=== PATIENT | male | born 1950 | race Caucasian/White ===

== ENCOUNTER 2024-06-30 19:39 | Emergency (ER) | payer OTHER ==
[2024-06-30] MEDS ORDERED: ASPIRIN 81 MG CHEWABLE TABLET ONE (20:52)
--- NOTE | 2024-06-30 21:13 | RAD REPORT ---
EXAMINATION: ONE VIEW CHEST XR CLINICAL INDICATION: Male, 73 years old.COUGH TECHNIQUE: 1 View, AP supine, X-ray of the chest was performed. [id number]. COMPARISON: No prior exam. FINDINGS: Lungs and pleura: Clear lungs. No effusion. Heart and mediastinum: Normal heart size. Unremarkable mediastinal contours. Osseous structures: No acute abnormality. Tubes/lines: None Other: None. IMPRESSION: No acute intrathoracic abnormality.
[2024-06-30] MEDS ORDERED: IPRATROPIUM BROM 0.5MG/2.5ML ONE (21:15)
[2024-06-30] MEDS ORDERED: ALBUTEROL 2.5 MG/3 ML NEB SOL ONE (21:15)
[2024-06-30 21:18] LABS: Absolute Basophils 0.1 K/uL (0-0.5); Absolute Eosinophils 0.3 K/uL (0-0.5); Absolute Lymphocytes (CBC) 1.6 K/uL (0.7-4.9); Absolute Monocytes 0.9 K/uL (0.1-1.3); Absolute Neutrophil 8.7 K/uL (1.8-8.0); Basophils % 0.6 % (0-1.3); Eosinophils % 2.4 % (0-4.4); Hematocrit 46.3 % (39.6-49.0); Lymphocytes % 13.9 % (15.3-44.8); MCHC 34.5 g/dL (32.0-36.0); MCV 95.6 fL (80-100); MPV 7.8 fL (7.6-11.3); Monocytes % 7.5 % (3.3-12.3); Neutrophils % 75.6 % (41.7-73.7); Nucleated Red Blood Cells % 0.1 % (0-0); Platelets 228 thou/uL (152-406); RBC Red Blood Cell Count 4.84 M/uL (4.33-5.43); Red Cell Distribution Width 13.8 % (12.1-15.2)
[2024-06-30 21:23] LABS: Specific Gravity 1.013 (1.005-1.030); Sqamous Epithelial <5 /HPF (None Seen); Urine Bacteria None Seen /HPF (<20); Urine Bilirubin NEGATIVE (Negative); Urine Blood Negative (Negative); Urine Clarity Clear (Clear); Urine Color Light-Yellow (Yellow); Urine Culture Reflex Order NOT NEEDED; Urine Glucose NEGATIVE (Negative); Urine Ketones NEGATIVE (Negative); Urine Microscopic Reflex YN ORDER UMIC; Urine Mucus Slight /HPF (None Seen); Urine Nitrite NEGATIVE (Negative); Urine Protein NEGATIVE (Negative); Urine RBC <5 /HPF (None Seen); Urine Urobilinogen Normal (Normal); Urine WBC <5 /HPF (<5); Urine pH 5.5 (5.0-7.0)
[2024-06-30 21:30] LABS: Barbiturates NEGATIVE (NEGATIVE); Benzodiazepines NEGATIVE (NEGATIVE); Cocaine NEGATIVE (NEGATIVE); METHAMPHETAM NEGATIVE (NEGATIVE); Methadone NEGATIVE (NEGATIVE); Opiates POSITIVE (NEGATIVE); Phencyclidine NEGATIVE (NEGATIVE); THC Cannibis POSITIVE (NEGATIVE)
[2024-06-30 21:36] LABS: Anion Gap 8.8 mEq/L (5.0-15.0); Troponin High Sensitivity 10.3 pg/mL (<58.9)
[2024-06-30 21:37] LABS: Potassium 3.8 mEq/L (3.5-5.1)
--- NOTE | 2024-07-01 00:25 | ER ---
Nurse's Notes [facility] Name: Chi Lovett Age: 73 yrs Sex: Male : 1950 Arrival Date: 06/30/2024 Time: 19:39 Bed 19 Private MD: Diagnosis: Shortness of breath;Wheezing;Palpitations;Generalized anxiety disorder Presentation: 06/30 20:35 Chief complaint: Patient states: difficulty breathing dizziness and feels like his kj2 heart is racing. Coronavirus screen: At this time, the client does not indicate any symptoms associated with coronavirus-19. Ebola Screen: No symptoms or risks identified at this time. 20:35 Method Of Arrival: Ambulatory kj2 21:56 Initial Sepsis Screen: Does the patient meet any 2 criteria? No. Patient's initial kj2 sepsis screen is negative. Does the patient have a suspected source of infection? No. Patient's initial sepsis screen is negative. Risk Assessment: Do you want to hurt yourself or someone else? Patient reports no desire to harm self or others. Onset of symptoms was June 30, 2024. 21:56 Acuity: SHARLENE 3 kj2 Triage Assessment: 21:24 General: Appears in no apparent distress. Behavior is calm, cooperative. Pain: Denies kj2 pain. Neuro: Level of Consciousness is awake, alert, obeys commands. Cardiovascular: Patient's skin is warm and dry. Respiratory: Reports shortness of breath at rest. GI: No signs and/or symptoms were reported involving the gastrointestinal system. : No signs and/or symptoms were reported regarding the genitourinary system. 21:56 Respiratory: Onset: The symptoms/episode began/occurred yesterday, the patient has kj2 moderate shortness of breath. Historical: - Allergies: 21:23 PENICILLINS; kj2 - Immunization history:: Adult Immunizations unknown. - Infectious Disease History:: Denies. - Social history:: Smoking status: Patient reports the use of cigarette tobacco products, smokes one-half pack cigarettes per day. Screenin:40 [facility] ED Fall Risk Assessment (Adult) History of falling in the last 3 months, kj2 including since admission No falls in past 3 months (0 pts) Confusion or Disorientation No (0 pts) Intoxicated or Sedated No (0 pts) Impaired Gait No (0 pts) Mobility Assist Device Used No (0 pt) Altered Elimination No (0 pt) Score/Fall Risk Level 0 - 2 = Low Risk Maintained a safe environment, Hourly rounding (assess needs \T\ fall precautionary measures) done. Abuse screen: Denies threats or abuse. Denies injuries from another. Nutritional screening: No deficits noted. Tuberculosis screening: No symptoms or risk factors identified. Assessment: 20:40 Respiratory: Airway is patent Respiratory effort is unlabored. kj2 21:26 General: see triage assessment. kj2 21:30 Respiratory: Breath sounds with rhonchi bilaterally. kj2 22:30 Reassessment: Patient appears in no apparent distress at this time. Patient and/or kj2 family updated on plan of care and expected duration. Pain level reassessed. Patient is alert, oriented x 3, equal unlabored respirations, skin warm/dry/pink. 22:50 Reassessment: Patient appears in no apparent distress at this time. Patient and/or kj2 family updated on plan of care and expected duration. Pain level reassessed. Patient is alert, oriented x 3, equal unlabored respirations, skin warm/dry/pink. 23:27 Reassessment: Patient appears in no apparent distress at this time. Patient and/or kj2 family updated on plan of care and expected duration. Pain level reassessed. Patient is alert, oriented x 3, equal unlabored respirations, skin warm/dry/pink. 23:52 Reassessment: Patient appears in no apparent distress at this time. Patient and/or kj2 family updated on plan of care and expected duration. Pain level reassessed. Patient is alert, oriented x 3, equal unlabored respirations, skin warm/dry/pink. 07/01 00:30 Cardiovascular: Rhythm is sinus rhythm. kj2 00:31 Reassessment: Patient appears in no apparent distress at this time. Patient and/or kj2 family updated on plan of care and expected duration. Pain level reassessed. Patient is alert, oriented x 3, equal unlabored respirations, skin warm/dry/pink. Vital Signs: 06/30 20:35 BP 179 / 74; Pulse 64; Resp 20; Temp 98; Pulse Ox 95% on R/A; Weight 86.18 kg; Height 6 kj2 ft. 1 in. ; 23:51 BP 188 / 77 LA; kj2 23:51 BP 158 / 79 RA; kj2 11/10 00:31 BP 145 / 80; Pulse 80; Resp 18; Temp 98; Pulse Ox 97% on R/A; kj2 06/30 20:35 Body Mass Index 25.07 (86.18 kg, 185.42 cm) kj2 ED Course: 06/30 19:45 Patient arrived in ED. gm2 20:32 Tejas Wilson PA is PHCP. cp 20:32 Martin Cotto MD is Attending Physician. cp 20:35 Arm band placed on Patient placed in an exam room, on a stretcher. kj2 20:40 Patient has correct armband on for positive identification. Bed in low position. Call kj2 light in reach. Provided Education on: call light. 20:48 Catherine Dahl, CODI is Primary Nurse. kj2 21:00 Inserted saline lock: 20 gauge in right antecubital area, using aseptic technique. kj2 Blood collected. Flushed with 10 mL NS. 21:06 Basic Metabolic Panel Sent. oh1 21:06 CBC with Diff Sent. oh1 21:08 XRAY Chest (1 view) In Process Unspecified. EDMS 21:55 EKG done, by field service poultry technician. reviewed by Tejas GONZALEZ. oh1 21:56 Triage completed. kj2 21:57 No provider procedures requiring assistance completed. kj2 07/01 00:30 IV discontinued, intact, bleeding controlled, No redness/swelling at site. Pressure kj2 dressing applied. Administered Medications: 06/30 21:00 Drug: DuoNeb Nebulize (2.5 mg - 0.5 mg) 3 ml Nebulizer once Route: Nebulizer; kj2 21:53 Follow up: Response: No adverse reaction kj2 21:00 Drug: Aspirin PO Chewable Tablet 324 mg PO once; 81 mg tablets x 4 Route: PO; kj2 21:53 Follow up: Response: No adverse reaction kj2 Medication: 21:56 VIS not applicable for this client. kj2 Outcome: 07/01 00:24 Discharge ordered by . cp 00:30 Discharged to home ambulatory, kj2 00:30 Condition: stable 00:30 Discharge instructions given to patient, Instructed on discharge instructions, follow up and referral plans. Demonstrated understanding of 00:37 Patient left the ED. kj2 Signatures: Dispatcher [employer] EDMS Tejas Wilson PA PA cp Mitchell, Ginger gm2 Catherine Dahl, RN RN kj2 Rhoda [place] oh1
--- NOTE | 2024-07-01 00:25 | EDPHYS ---
Physician Documentation [facility] Name: Chi Lovett Age: 73 yrs Sex: Male : 1950 Arrival Date: 06/30/2024 Time: 19:39 Bed 19 Private MD: ED Physician Martin Cotto HPI: 06/30 21:00 This 73 yrs old Male presents to ER via Ambulatory with complaints of Shortness Of cp Breath, Pt states he is not feeling right, Dizziness, Headache. 21:00 The patient has shortness of breath at rest. cp 21:00 Onset: The symptoms/episode began/occurred tonight while at home. Duration: The cp symptoms are continuous, but are steadily getting better. Associated signs and symptoms: Pertinent positives: dizziness, headache, palpitations and anxiety, Pertinent negatives: chest pain, diaphoresis, fever, vomiting, diarrhea. Severity of symptoms: in the emergency department the symptoms have improved mildly. Historical: - Allergies: 21: PENICILLINS; kj2 - Immunization history:: Adult Immunizations unknown. - Infectious Disease History:: Denies. - Social history:: Smoking status: Patient reports the use of cigarette tobacco products, smokes one-half pack cigarettes per day. ROS: 21:05 Constitutional: Negative for body aches, chills, fever, poor PO intake, cp 21:05 Respiratory: Positive for shortness of breath, wheezing, cp 21:05 Psych: Positive for anxiety, 21:05 Eyes: Negative for injury, pain, redness, and discharge, cp 21:05 ENT: Negative for drainage from ear(s), ear pain, sore throat, difficulty swallowing, difficulty handling secretions, 21:05 Cardiovascular: Positive for palpitations, Negative for chest pain, edema, 21:05 Abdomen/GI: Negative for abdominal pain, vomiting, diarrhea, constipation, 21:05 Back: Negative for pain at rest, pain with movement, 21:05 : Negative for urinary symptoms, testicular pain 21:05 Skin: Negative for rash, 21:05 Neuro: Positive for dizziness, headache, Negative for altered mental status, numbness, syncope, weakness, 21:05 All other systems are negative, Exam: 21:10 Constitutional: The patient appears in no acute distress, alert, awake, cp non-diaphoretic, non-toxic, well developed, well nourished, 21:10 Head/Face: Normocephalic, atraumatic. cp 21:10 Eyes: Periorbital structures: appear normal, Conjunctiva: normal, no exudate, no injection, Sclera: no appreciated abnormality, Lids and lashes: appear normal, bilaterally, 21:10 ENT: External ear(s): are unremarkable, Nose: is normal, Mouth: Lips: moist, Oral mucosa: pink and intact, moist, Posterior pharynx: is normal, airway is patent, no erythema, no exudate, 21:10 Neck: ROM/movement: is normal, is supple, without pain, no range of motions limitations, 21:10 Chest/axilla: Inspection: normal, Palpation: crepitus, is not appreciated, tenderness, is not appreciated, 21:10 Cardiovascular: Rate: normal, Rhythm: regular, Edema: is not appreciated, JVD: is not appreciated, 21:10 Respiratory: the patient does not display signs of respiratory distress, Respirations: normal, no use of accessory muscles, no retractions, labored breathing, is not present, Breath sounds: decreased breath sounds, that are mild, throughout, stridor, is not appreciated, wheezing: that is mild, is heard diffusely, 21:10 Abdomen/GI: Inspection: abdomen appears normal, Palpation: abdomen is soft and non-tender, in all quadrants, 21:10 Back: pain, is absent, ROM is normal, 21:10 Neuro: Orientation: to person, place \T\ time. Mentation: is normal, Cerebellar function: is grossly normal, Motor: moves all fours, strength is normal, Sensation: is normal, 21:10 Psych: Behavior/mood is pleasant, cooperative, Affect is calm, Patient has no thoughts/intents to harm self or others. Judgement / Insight is normal. Delusions/hallucinations are not present. 21:40 ECG was reviewed by the Attending Physician. cp Vital Signs: 20:35 BP 179 / 74; Pulse 64; Resp 20; Temp 98; Pulse Ox 95% on R/A; Weight 86.18 kg; Height 6 kj2 ft. 1 in. ; 23:51 BP 188 / 77 LA; kj2 23:51 BP 158 / 79 RA; kj2 07/01 00:31 BP 145 / 80; Pulse 80; Resp 18; Temp 98; Pulse Ox 97% on R/A; 2 06/30 20:35 Body Mass Index 25.07 (86.18 kg, 185.42 cm) [facility] MDM: 00:24 Medical Screening Exam initiated 00:24 Data reviewed: vital signs, nurses notes, lab test result(s), EKG, radiologic studies, cp plain films, and as a result, I will discharge patient. 00:24 Differential diagnosis: Anxiety Reaction Chronic Obstructive Pulmonary Disease cp Myocardial Infarction pneumonia, Pneumothorax pulmonary edema, Pulmonary Embolism Unstable Angina. I considered the following discharge prescriptions or medication management in the emergency department Medications were administered in the Emergency Department. See MAR. Independent interpretation of the following test(s) in the Emergency Department EKG: See my EKG interpretation above. Counseling: I had a detailed discussion with the patient and/or guardian regarding the historical points, exam findings, and any diagnostic results supporting the discharge/admit diagnosis, lab results, radiology results, to return to the emergency department if symptoms worsen or persist or if there are any questions or concerns that arise at home. Response to treatment: the patient's symptoms have markedly improved after treatment, and as a result, I will discharge patient. 06/30 20:17 Order name: Basic Metabolic Panel; Complete Time: 22:01 2 07/01 00:23 Interpretation: Normal except: GLUC 137; GFR 86. 06/30 20:17 Order name: CBC with Diff; Complete Time: 22:01 2 06/30 20:17 Order name: NT PRO-BNP; Complete Time: 22:01 [facility] 06/30 20:17 Order name: Troponin HS; Complete Time: 22:01 [facility] 06/30 20:38 Order name: UDS; Complete Time: 22:01 06/30 20:38 Order name: Urinalysis w/ reflexes; Complete Time: 22:01 06/30 22:33 Order name: Troponin High Sensitivity; Complete Time: 00:20 06/30 20:17 Order name: XRAY Chest (1 view); Complete Time: 22:01 2 06/30 23:53 Interpretation: Report review. 06/30 20:17 Order name: Cardiac monitoring; Complete Time: 21:50 2 06/30 20:17 Order name: EKG - Nurse/Tech; Complete Time: 21:50 2 06/30 20:17 Order name: IV Saline Lock; Complete Time: 21:06 ec2 06/30 20:17 Order name: Labs collected and sent; Complete Time: : ec2 06/30 20:17 Order name: O2 Per Protocol; Complete Time: : ec2 06/30 20:17 Order name: O2 Sat Monitoring; Complete Time: 21:06 ec2 EC/09 21:40 Rate is 51 beats/min. Rhythm is regular. NM interval is normal. QRS interval is normal. cp QT interval is normal. T waves are Inverted in leads aVL, aVR. Interpreted by me. Reviewed by me. Administered Medications: 21:00 Drug: DuoNeb Nebulize (2.5 mg - 0.5 mg) 3 ml Nebulizer once Route: Nebulizer; 2 21:53 Follow up: Response: No adverse reaction kj2 21:00 Drug: Aspirin PO Chewable Tablet 324 mg PO once; 81 mg tablets x 4 Route: PO; kj2 21:53 Follow up: Response: No adverse reaction kj2 Disposition Summary: 07/01/24 00:24 Discharge Ordered Notes: Location: Home cp Problem: new cp Symptoms: have improved cp Condition: Stable cp Diagnosis - Shortness of breath cp - Wheezing cp - Palpitations cp - Generalized anxiety disorder cp Followup: cp - With: Private Physician - When: 2 - 3 days - Reason: Recheck today's complaints Discharge Instructions: - Discharge Summary Sheet cp - Palpitations cp - Shortness of Breath, Adult cp - Aspirin and Your Heart cp - Generalized Anxiety Disorder, Adult cp - Managing Anxiety, Adult cp Forms: - Medication Reconciliation Form cp - Antibiotic Education cp - Prescription Opioid Use cp - Patient Portal Instructions cp - Leadership Thank You Letter cp Prescriptions: - albuterol sulfate 90 mcg/actuation Inhalation HFA Aerosol Inhaler - inhale 1 inhalation INHALATION route every 4 to 6 hours as needed for cp bronchospasm; administer via ventilator; 1 unit; Refills: 0, Product Selection Permitted - Prednisone 20 mg Oral Tablet - take 2 tablets ORAL route once daily for 5 days; 10 tablet; Refills: 0, Product cp Selection Permitted Addendum: 07/04/2024 17:16 I was immediately available for consultation during this patient's visit. I did not e c2 personally see the patient or discuss the patient with the HARPAL. . Signatures: Dispatcher [employer] EDMS Tejas Wilson PA PA cp Martin Cotto MD MD ec2 Catherine Dahl, RN RN kj2 Corrections: (The following items were deleted from the chart) 06/30 20:18 20:18 Chest Single View+RAD.RAD.BRZ ordered. EDMS EDMS 20:39 20:39 URINE DRUG SCREEN+UC.LAB.BRZ ordered. EDMS EDMS 20:39 20:39 Urinalysis+U.LAB.BRZ ordered. EDAL EDMS 22:34 22:33 Troponin High Sensitivity+C.LAB.BRZ ordered. EDAL EDMS 07/01 00:56 06/29 21:40 ECG was reviewed by the Attending Physician. cp cp 07/01 00:56 06/29 21:40 Rate is 51 beats/min. Rhythm is regular. NM interval is normal. QRS cp interval is normal. QT interval is normal. T waves are Inverted in leads aVL, aVR. Interpreted by me. Reviewed by me. cp
[2024-07-01 01:16] VITALS: TEMP 98
[2024-07-01 01:20] VITALS: BP 145/80; O2SAT 97
--- NOTE | 2024-07-01 12:39 | EKG ---
Test Date: 2024-06-30 Test Time: 21:29:57 Salesperson Floor Coverings: ROSA MEASUREMENT RESULTS: Intervals: Rate: 0 OK: QRSD: 0 QT: 0 QTc: 0 [place]: P: OK: QRS: 0 T: 0 INTERPRETIVE STATEMENTS: No QRS complexes found, no ECG analysis possible Compared to ECG 10/18/2011 19:53:07 Sinus rhythm no longer present Electronically Signed On 07-01-24 12:38:31 LEAD CASE MANAGER by Wagner Campoverde
--- NOTE | 2024-07-02 12:07 | EKG ---
Test Date: 2024-06-30 Test Time: 21:34:04 Estate Conservator: ROSA MEASUREMENT RESULTS: Intervals: Rate: 51 IN: 184 QRSD: 84 QT: 412 QTc: 379 [place]: P: 73 IN: 184 QRS: 84 T: 76 INTERPRETIVE STATEMENTS: Sinus bradycardia Anterior infarct, age undetermined Abnormal ECG Compared to ECG 06/30/2024 21:29:57 Myocardial infarct finding now present Electronically Signed On 07-02-24 12:05:23 DRILLING SUPERINTENDENT by Wagner Campoverde
== END 2024-07-01 00:37 | disposition home or self-care (01) ==
LOC: ER 19:39
DX: R06.02 Shortness of breath (principal); R06.2 Wheezing; R00.2 Palpitations; F41.1 Generalized anxiety disorder; F17.210 Nicotine dependence, cigarettes, uncomplicated
CPT/HCPCS: 93005 ×2; 85025; 81001; 80048; 36415; 84484 ×2; 83880; 80307; 71045; J7613; J7644; 99284

== ENCOUNTER 2024-10-04 12:11 | Emergency (ER) | payer OTHER ==
[2024-10-04] MEDS ORDERED: ALBUTEROL 2.5 MG/3 ML NEB SOL ONE (12:37)
[2024-10-04] MEDS ORDERED: MORPHINE 4 MG/ML SYR ONE (12:38)
[2024-10-04] MEDS ORDERED: IPRATROPIUM BROM 0.5MG/2.5ML ONE (12:38)
[2024-10-04] MEDS ORDERED: METHYLPREDNISOLONE 125 MG INJ ONE (12:38)
[2024-10-04 12:51] LABS: Absolute Basophils 0.1 K/uL (0-0.5); Absolute Eosinophils 0.1 K/uL (0-0.5); Absolute Lymphocytes (CBC) 1.2 K/uL (0.7-4.9); Absolute Monocytes 0.6 K/uL (0.1-1.3); Absolute Neutrophil 7.7 K/uL (1.8-8.0); Basophils % 0.9 % (0-1.3); Eosinophils % 0.9 % (0-4.4); Hematocrit 46.5 % (39.6-49.0); Hemoglobin 15.9 g/dL (13.6-17.9); Lymphocytes % 12.4 % (15.3-44.8); MCH 32.8 pg (27.0-35.0); MCHC 34.2 g/dL (32.0-36.0); MCV 95.7 fL (80-100); MPV 7.7 fL (7.6-11.3); Monocytes % 6.6 % (3.3-12.3); Neutrophils % 79.2 % (41.7-73.7); Nucleated Red Blood Cells % 0.2 % (0-0); Platelets 236 thou/uL (152-406); RBC Red Blood Cell Count 4.86 M/uL (4.33-5.43); Red Cell Distribution Width 14.2 % (12.1-15.2)
[2024-10-04 12:54] LABS: PT Prothrombin Time 11.5 SECONDS (9.4-12.5); Protime INR 1.1
[2024-10-04 13:09] LABS: Troponin High Sensitivity 7.9 pg/mL (<58.9)
--- NOTE | 2024-10-04 13:46 | EDPHYS ---
Physician Documentation [facility] Name: Chi Lovett Age: 74 yrs Sex: Male : 1950 Arrival Date: 10/04/2024 Time: 12:11 Bed 16 Private MD: ED Physician Martin Cotto HPI: 10/04 12:35 This 74 yrs old Male presents to ER via Ambulatory with complaints of Chest ec2 Pain, Shortness Of Breath. 12:35 Patient arrives today for evaluation of chest pain and shortness of breath ongoing for ec2 at least 5+ months. Patient reports no specific or alleviating factors. Reports that he is a daily smoker approximately pack per day. Reports he has not seen his primary care doctor for this.. Historical: - Allergies: 12:19 PENICILLINS; ll1 - PMHx: 12:28 Hypertensive disorder; ll1 - PSHx: 12:28 scar tissue removed from ACL; ll1 - Immunization history:: Adult Immunizations up to date. - Infectious Disease History:: Denies. - Social history:: Smoking status: Patient reports the use of cigarette tobacco products, smokes .75 packs per day. ROS: 12:35 Constitutional: as per hpi ec2 Exam: 12:35 Constitutional: GEN: NAD Head: atraumatic Eyes: EOMI Ears: External ears are ec2 normal. CV: regular rate LUNGS: no respiratory distress, scattered wheezes noted throughout multiple lung mcdowell ABD: non-distended SKIN: no evidence of rashes MSK: no evidence of trauma Vital Signs: 12:28 BP 189 / 92; Pulse 66; Resp 20; Temp 97.9; Pulse Ox 96% on R/A; Weight 85.73 kg; Height ll1 6 ft. 1 in. ; Pain 0/10; 13:34 BP 136 / 84; Pulse 84; Resp 19; Pulse Ox 98% on R/A; hb 12:28 Body Mass Index 24.94 (85.73 kg, 185.42 cm) ll1 12:28 Pain Scale: Adult ll1 MDM: 12:19 Medical Screening Exam initiated ec2 12:35 Data reviewed: vital signs, nurses notes. ec2 12:39 ED course: Patient arrives today for chest pain or shortness of breath. Examination ec2 yields cardiopulmonary findings as above. Will obtain chest x-ray, cardiac enzymes, rest of blood work. Differential includes ACS, COPD, pneumonia. EKG obtained, independently reviewed and interpreted by me, shows normal sinus rhythm, rate of 67, no acute ST segment elevations, intervals are nonactionable.. 13:46 ED course: Patient arrives workup is unrevealing. Further discussion with patient he ec2 will do patient is markedly anxious, is having stressors at home with his adult children, instructed him to follow-up with primary care doctor regarding senior living medications for anxiety, will prescribe him Atarax as needed for anxiety. Will start the patient on prednisone as he has likely undiagnosed COPD given his wheezing and smoking history. Return precautions given.. 10/04 12:21 Order name: Basic Metabolic Panel; Complete Time: 13:12 ec2 10/04 12:21 Order name: CBC with Diff; Complete Time: 12:57 ec2 10/04 12:21 Order name: NT PRO-BNP; Complete Time: 13:12 ec2 10/04 12:21 Order name: PT-INR; Complete Time: 12:57 ec2 10/04 12:21 Order name: Troponin HS; Complete Time: 13:12 ec2 10/04 12:21 Order name: XRAY Chest (1 view); Complete Time: 13:55 ec2 10/04 12:21 Order name: Cardiac monitoring; Complete Time: 12:35 ec2 10/04 12:21 Order name: EKG - Nurse/Tech; Complete Time: 12:35 ec2 10/04 12:21 Order name: IV Saline Lock; Complete Time: 12:35 ec2 10/04 12:21 Order name: Labs collected and sent; Complete Time: 12:35 ec2 10/04 12:21 Order name: O2 Per Protocol; Complete Time: 12:35 ec2 10/04 12:21 Order name: O2 Sat Monitoring; Complete Time: 12:35 ec2 Administered Medications: 12:54 Drug: DuoNeb Nebulize (3:1) (2.5 mg - 0.5 mg) 3 ml Nebulizer once Route: Nebulizer; hb 13:36 Follow up: Response: No adverse reaction hb 12:54 Drug: MethylPrednisoLONE IVP 125 mg IVP once Route: IVP; Site: left antecubital; hb 13:36 Follow up: Response: No adverse reaction hb 12:54 Drug: morphine IVP or IV 4 mg IVP once over 4 mins Route: IVP; Infused Over: 4 mins; hb Site: left antecubital; 13:36 Follow up: Response: No adverse reaction hb Disposition Summary: 10/04/24 13:46 Discharge Ordered Notes: Location: Home ec2 Condition: Stable ec2 Diagnosis - Chest pain, unspecified ec2 - Anxiety disorder, unspecified ec2 Followup: ec2 - With: Private Physician - When: - Reason: Re-evaluation by your physician Discharge Instructions: - Discharge Summary Sheet ec2 - Chronic Obstructive Pulmonary Disease ec2 - Managing Anxiety, Adult ec2 Forms: - Medication Reconciliation Form ec2 - Antibiotic Education ec2 - Prescription Opioid Use ec2 - Patient Portal Instructions ec2 - Leadership Thank You Letter ec2 Prescriptions: - Hydroxyzine HCl 25 mg Oral Tablet - take 1 tablet ORAL route every 6 hours As needed; 30 tablet; Refills: 0, ec2 Product Selection Permitted - Prednisone 20 mg Oral Tablet - take 2 tablets ORAL route once daily for 5 days; 10 tablet; Refills: 0, Product ec2 Selection Permitted Signatures: Dispatcher [employer] Kamini Khalil RN RN Noemi John RN RN ll1 Martin Cotto MD MD ec2 Corrections: (The following items were deleted from the chart) 12:21 12:21 Chest Single View+RAD.RAD.BRZ ordered. [place]
--- NOTE | 2024-10-04 13:46 | ER ---
Nurse's Notes [facility] Name: Chi Lovett Age: 74 yrs Sex: Male : 1950 Arrival Date: 10/04/2024 Time: 12:11 Bed 16 Private MD: Diagnosis: Chest pain, unspecified;Anxiety disorder, unspecified Presentation: 10/04 12:28 Chief complaint: Patient states: Intermittent CP, SOB, weak since June. Coronavirus ll1 screen: Client denies travel out of the [place] in the last 14 days. At this time, the client does not indicate any symptoms associated with coronavirus-19. Ebola Screen: Patient denies travel to an Ebola-affected area in the 21 days before illness onset. Initial Sepsis Screen: Does the patient meet any 2 criteria? No. Patient's initial sepsis screen is negative. Does the patient have a suspected source of infection? No. Patient's initial sepsis screen is negative. Risk Assessment: Do you want to hurt yourself or someone else? Patient reports no desire to harm self or others. Onset of symptoms was June 30, 2024. 12:28 Method Of Arrival: Ambulatory ll1 12:28 Acuity: SHARLENE 3 ll1 Triage Assessment: 12:30 General: Appears distressed, Behavior is calm, cooperative, appropriate for age. Pain: ll1 Denies pain. Neuro: Reports weakness. Cardiovascular: Reports chest pain, fatigue, shortness of breath. Respiratory: Reports shortness of breath. Historical: - Allergies: 12:19 PENICILLINS; ll1 - PMHx: 12:28 Hypertensive disorder; ll1 - PSHx: 12:28 scar tissue removed from ACL; ll1 - Immunization history:: Adult Immunizations up to date. - Infectious Disease History:: Denies. - Social history:: Smoking status: Patient reports the use of cigarette tobacco products, smokes .75 packs per day. Screenin:45 [facility] ED Fall Risk Assessment (Adult) History of falling in the last 3 months, hb including since admission No falls in past 3 months (0 pts) Confusion or Disorientation No (0 pts) Intoxicated or Sedated No (0 pts) Impaired Gait No (0 pts) Mobility Assist Device Used No (0 pt) Altered Elimination No (0 pt) Score/Fall Risk Level 0 - 2 = Low Risk Oriented to surroundings, Maintained a safe environment, Educated pt \T\ family on fall prevention, incl call for assistance when getting out of bed. Abuse screen: Denies threats or abuse. Denies injuries from another. Nutritional screening: No deficits noted. Tuberculosis screening: No symptoms or risk factors identified. Assessment: 12:30 General: Appears in no apparent distress. Behavior is cooperative, agitated, anxious. hb Pain: Pain currently is 6 out of 10 on a pain scale. Neuro: Level of Consciousness is awake, alert, obeys commands, Oriented to person, place, time, situation. Cardiovascular: Patient's skin is warm and dry. Chest pain. Respiratory: Respiratory effort is even, mildly labored Respiratory pattern is regular. GI: No signs and/or symptoms were reported involving the gastrointestinal system. EENT: No signs and/or symptoms were reported regarding the EENT system. Derm: Skin is pink, warm \T\ dry. Musculoskeletal: No signs and/or symptoms reported regarding the musculoskeletal system. 13:34 Reassessment: Patient appears in no apparent distress at this time. Patient and/or hb family updated on plan of care and expected duration. Pain level reassessed. Patient is alert, oriented x 3, equal unlabored respirations, skin warm/dry/pink. Vital Signs: 12:28 BP 189 / 92; Pulse 66; Resp 20; Temp 97.9; Pulse Ox 96% on R/A; Weight 85.73 kg; Height ll1 6 ft. 1 in. ; Pain 0/10; 13:34 BP 136 / 84; Pulse 84; Resp 19; Pulse Ox 98% on R/A; hb 12:28 Body Mass Index 24.94 (85.73 kg, 185.42 cm) ll1 12:28 Pain Scale: Adult ll1 ED Course: 12:18 Patient arrived in ED. im 12:19 Martin Cotto MD is Attending Physician. ec2 12:19 Arm band placed on Patient placed in an exam room, on a stretcher. ll1 12:30 Triage completed. ll1 12:40 Inserted saline lock: 20 gauge in left antecubital area, using aseptic technique. Blood hb collected. Flushed with 10 mL NS. 12:45 Patient has correct armband on for positive identification. Bed in low position. Call hb light in reach. Provided Education on: tests, result times, medications . Client placed on continuous cardiac and pulse oximetry monitoring. NIBP monitoring applied. monitor and storage bin tender on. Pulse ox on. NIBP on. 12:45 Patient maintains SpO2 saturation greater than 95% on room air. hb 12:54 Kamini Callejas, RN is Primary Nurse. hb 13:03 XRAY Chest (1 view) In Process Unspecified. EDMS 13:58 No provider procedures requiring assistance completed. IV discontinued, intact, hb bleeding controlled, No redness/swelling at site. Pressure dressing applied. Administered Medications: 12:54 Drug: DuoNeb Nebulize (3:1) (2.5 mg - 0.5 mg) 3 ml Nebulizer once Route: Nebulizer; hb 13:36 Follow up: Response: No adverse reaction hb 12:54 Drug: MethylPrednisoLONE IVP 125 mg IVP once Route: IVP; Site: left antecubital; hb 13:36 Follow up: Response: No adverse reaction hb 12:54 Drug: morphine IVP or IV 4 mg IVP once over 4 mins Route: IVP; Infused Over: 4 mins; hb Site: left antecubital; 13:36 Follow up: Response: No adverse reaction hb Medication: 13:34 VIS not applicable for this client. hb Outcome: 13:46 Discharge ordered by . ec2 13:58 Discharged to home ambulatory, hb 13:58 Condition: stable 13:58 Discharge instructions given to patient, Instructed on discharge instructions, follow up and referral plans. medication usage, Demonstrated understanding of instructions, follow-up care, medications, Prescriptions given X 2, 13:59 Patient left the ED. hb Signatures: Dispatcher [employer] EDMA Kamini Callejas RN RN Noemi John RN RN ll1 Michelle San Edwin, MD MD ec2 Corrections: (The following items were deleted from the chart) 13:34 12:30 : No signs and/or symptoms were reported regarding the genitourinary system. hb hb 13:34 12:30 Reassessment: Patient appears in no apparent distress at this time. Patient hb and/or family updated on plan of care and expected duration. Pain level reassessed. Patient is alert, oriented x 3, equal unlabored respirations, skin warm/dry/pink. hb
--- NOTE | 2024-10-04 13:53 | RAD REPORT ---
EXAMINATION: ONE VIEW CHEST XR CLINICAL INDICATION: Male, 74 years old.,CHEST PAIN TECHNIQUE: Frontal chest projection is submitted. Examination is limited by patient positioning and t echnique. COMPARISON: 06/30/2024 FINDINGS: The lungs are well inflated and clear. No pneumothorax or sizable effusion. The heart is normal in s ize. Mediastinal contours are unremarkable. IMPRESSION: No acute intrathoracic abnormalities.
[2024-10-04 14:03] VITALS: TEMP 97.9
[2024-10-04 14:04] VITALS: BP 136/84; O2SAT 98
== END 2024-10-04 13:59 | disposition home or self-care (01) ==
LOC: ER 12:11
DX: F41.9 Anxiety disorder, unspecified (principal); I10 Essential (primary) hypertension; F17.210 Nicotine dependence, cigarettes, uncomplicated
CPT/HCPCS: 93005; 85025; 80048; 36415; 85610; 84484; 83880; 71045; 96375; 96374; 99285; J7613; J7644; J2919